=== PATIENT | female | born 1975 | race Caucasian/White ===

== ENCOUNTER 2017-08-26 12:59 | Outpatient (CLI) | payer BC ==
--- NOTE | 2017-08-26 13:48 | ULT ---
FOCUS ULTRASOUND OF THE SCALP: Date: 08-26-17 Comparison: None. History: Localized area of scalp swelling. FINDINGS: Focused ultrasound in the area of patient concern is provided. No fluid collection or mass is identif ied. IMPRESSION: Grossly unremarkable focused ultrasound of the scalp. If symptoms persist, MRI with and without contr ast advised. POS: [facility]
== END 2017-08-26 13:00 | disposition home or self-care (01) ==
LOC: ULT 12:59
PROVIDERS: ATTEND Family Medicine
DX: R22.0 Localized swelling, mass and lump, head (principal)
CPT/HCPCS: 76999